=== PATIENT | male | born 1970 | race Two or more races ===

== ENCOUNTER 2021-02-12 00:15 | Emergency (ER) | payer SELFPAY ==
[~2021-02-12] VITALS: Ht 182.9 cm; Wt 84.4 kg
--- NOTE | 2021-02-12 00:30 | NUR ---
PT BIBRA 61 C/O LEFT RIB PAIN RADIATING TO THE BACK. PT HAD FALLEN OFF A LADDER ON MONDAY WHILE WORKING. BRUISING NOTED ON THE TRANSVERSE ABD. PT ALERT AND ORIENTED X3. WITH FACIAL GRIMACING AND MOANING IN PAIN.
--- NOTE | 2021-02-12 00:45 | NUR ---
BLOOD COLLECTED AND SENT TO THE LAB.
[2021-02-12] MEDS ORDERED: KETOROLAC TROMETHAMINE INJ 30 MG/ML VIAL ONE (00:51)
[2021-02-12] MEDS ORDERED: KETOROLAC TROMETHAMINE INJ 30 MG/ML VIAL IV ONE (01:00)
--- NOTE | 2021-02-12 01:02 | NUR ---
XR AT BEDSIDE
[2021-02-12 01:10] LABS: BASOPHILS # (AUTO) 0.1 K/uL (0.0-0.2); BASOPHILS % (AUTO) 0.7 % (0.0-2.0); EOSINOPHILS % (AUTO) 0.1 % (0.0-6.0); HEMATOCRIT 43 % (39-51); HEMOGLOBIN 14.7 g/dL (13.5-17.5); LYMPHOCYTES # (AUTO) 2.6 K/uL (0.8-4.8); LYMPHOCYTES % (AUTO) 34.7 % (20.0-44.0); MEAN CORPUSCULAR HGB CONC 34 g/dl (31.0-36.0); MEAN CORPUSCULAR VOLUME 95 fL (80-96); MONOCYTES # (AUTO) 0.3 K/uL (0.1-1.30); MONOCYTES % (AUTO) 4.3 % (2.0-12.0); NEUTROPHILS # (AUTO) 4.5 K/uL (1.8-8.9); NEUTROPHILS % (AUTO) 60.2 % (43.0-81.0); PLATELET COUNT (AUTO) 249 K/uL (150-450); RED BLOOD CELL COUNT(AUTO) 4.59 MIL/uL (4.5-6.0); WHITE BLOOD COUNT (AUTO) 7.4 K/uL (4.3-11.0)
[2021-02-12 01:17] LABS: CALCIUM, SERUM 8.9 mg/dL (8.5-10.1); CARBON DIOXIDE 17 mmol/L (21-32); CHLORIDE 101 mmol/L (98-107); GLUCOSE 140 mg/dL (74-106); POTASSIUM 3.1 mmol/L (3.5-5.1); SODIUM SERUM 141 mmol/L (136-145); UREA NITROGEN, BLOOD 12 mg/dL (7-18)
[2021-02-12] MEDS ORDERED: MORPHINE SULFATE INJ 4 MG/ML DISP.SYRIN ONE (01:19)
[2021-02-12 01:26] LABS: D-DIMER 0.55 mg/L(FEU (0.17-0.50)
[2021-02-12 01:29] LABS: ALANINE AMINOTRANSFERASE 51 U/L (12-78); ALBUMIN 4.1 g/dL (3.4-5.0); ALKALINE PHOSPHATASE 127 U/L (46-116); ASPARTATE AMINOTRANSFERASE 88 U/L (15-37); BILIRUBIN,DIRECT 0.2 mg/dL (0.0-0.2); BILIRUBIN,TOTAL 0.6 mg/dL (0.2-1.0)
[2021-02-12] MEDS ORDERED: MORPHINE SULFATE INJ 2 MG/ML DISP.SYRIN IV ONE (01:30)
[2021-02-12] MEDS ORDERED: ONDANSETRON HCL/PF 4 MG/2 ML VIAL ONE (01:37)
[2021-02-12] MEDS ORDERED: ONDANSETRON HCL/PF 4 MG/2 ML VIAL IV ONE (02:00)
[2021-02-12] MEDS ORDERED: CT SWABBABLE VALVE TRANS SET 1 EA INFUS.SET MC ONE (02:03)
[2021-02-12] MEDS ORDERED: IV NS 0.9% 250 ML IV ONE (02:03)
[2021-02-12] MEDS ORDERED: IOHEXOL-350 100 ML VIAL IV ONE (02:03)
[2021-02-12] MEDS ORDERED: POTASSIUM CHLORIDE 20 MEQ TAB.PRT.SR PO ONE ×2 (02:58→03:00)
[2021-02-12] MEDS ORDERED: LORAZEPAM INJ 2 MG/ML VIAL ONE ×2 (02:58→04:18)
[2021-02-12] MEDS ORDERED: LORAZEPAM INJ 2 MG/ML VIAL IV ONE ×3 (03:00→04:00)
[2021-02-12] MEDS ORDERED: IV NS 0.9% 1,000 ML BAG IV ONE (05:00)
--- NOTE | 2021-02-12 05:00 | NUR ---
PATIENT IN BED SLEEPING EASY TO AROUSE. PATIENT VSS, CONNECTED TO MONITORS. NO ACUTE DISTRESS NOTED.
[2021-02-12] MEDS ORDERED: CHLO25CA22 PO (05:22)
--- NOTE | 2021-02-12 06:45 | NUR ---
PATIENT WILL [employer] PT. ETA 1.5 HOURS
--- NOTE | 2021-02-12 08:21 | NUR ---
PATIENT AWAKE AND ALERT, NO DISTRESS NOTED. KEPT COMFORTABLE.
[2021-02-12] MEDS ORDERED: IBUPROFEN 600 MG TABLET ONE (08:27)
[2021-02-12] MEDS ORDERED: IBUPROFEN 600 MG TABLET PO ONE (08:30)
[2021-02-12] MEDS ORDERED: LORAZEPAM 1 MG TABLET ONE (08:57)
[2021-02-12] MEDS ORDERED: LORAZEPAM 1 MG TABLET PO ONE (09:00)
--- NOTE | 2021-02-12 09:03 | NUR ---
PATIENT APPEARS TO HAVE ALCOHOL WITHDRAWAL SYMPTOMS, TREMORS AND TACHYCARDIA. HR ELEVATED AND INFORMED DR. LONG, RECEIVED ORDER FOR ATIVAN 1MG. ORDER NOTED AND CARRIED OUT.
--- NOTE | 2021-02-12 09:53 | NUR ---
The patient is alert and oriented x3. No s/s alcohol withdrawal noted. Stable gait. Denies pain. In room air and denies SOB. Respiration regular and unlabored. IV removed. Catheter intact and site benign. Pressure and 4x4 applied to site. No bleeding noted.Patient discharged to home in stable condition. Written and verbal after care instructions given. Patient verbalizes understanding of instruction. The patient is picked up by .
[2021-02-12 09:55] VITALS: BP 131/86
== END 2021-02-12 09:58 | disposition home or self-care (01) ==
LOC: ER 00:15
DX: F41.9 Anxiety disorder, unspecified (principal); F10.239 Alcohol dependence with withdrawal, unspecified; Z20.822 Contact with and (suspected) exposure to COVID-19; R00.0 Tachycardia, unspecified; R94.31 Abnormal electrocardiogram [ECG] [EKG]; M47.896 Other spondylosis, lumbar region; K76.0 Fatty (change of) liver, not elsewhere classified; K80.20 Calculus of gallbladder without cholecystitis without obstruction
CPT/HCPCS: 36415; 71045; 71275; 72100; 80048; 80076; 83880; 84484; 85025; 85378; 85730; 87426; 93005; 96361; 96374; 96375; 96376; 99285; C9803; J1885; J2060 ×2; J2270; J2405; J7050; Q9967